=== PATIENT | male | born 1995 | race African-American/Black ===

== ENCOUNTER 2018-11-09 16:38 | Emergency (ER) | payer OTHER ==
[2018-11-09 16:48] VITALS: BP 147/90; PULSE 72; RESP 16; TEMP 97.4
[2018-11-09] MEDS ORDERED: GELATIN SPONGE,ABSORB (LARGE) 1 EACH SPONGE TOPICAL STA (17:01)
[2018-11-09] MEDS ORDERED: DIPH,PERTUS(ACELL)TETVAC-LF 0.5 ML VIAL IM ONE (17:02)
--- NOTE | 2018-11-09 17:11 | ED ---
Wound/Laceration HPI - General Chief Complaint: Wound/Laceration Stated Complaint: finger injury-[facility] Time Seen by Provider: 11/09/18 16:49 Source: patient, RN notes reviewed Mode of arrival: ambulatory Limitations: no limitations - History of Present Illness Initial Comments: 23-year-old male presents emergency Department with chief complaint of lacerat ion to his left hand fourth digit. Patient states that he was wearing gloves at work and states that apart caught his finger causing a laceration to the dorsal aspect of the finger. He states that there is just small area of skin missing. Patient's full range of motion no paresthesias. Patient's unsure when his last tetanus was. - Related Data Home Medications Medication Instructions Recorded Confirmed D-Methorphan/PE/Acetaminophen 1 cap PO DAILY PRN 11/09/18 11/09/18 [[facility] Dayquil Liquicaps] Allergies Allergy/AdvReac Type Severity Reaction Status Date / Time No Known Allergies Allergy Verified 11/09/18 17:02 Review of Systems ROS Statement: Those systems with pertinent positive or pertinent negative responses have been documented in the HPI. ROS Other: All systems not noted in ROS Statement are negative. Past Medical History Past Medical History: No Reported History History of Any Multi-Drug Resistant Organisms: None Reported Past Surgical History: No Surgical Hx Reported Past Psychological History: No Psychological Hx Reported Smoking Status: Never smoker Past Alcohol Use History: None Reported Past Drug Use History: None Reported General Exam Limitations: no limitations General appearance: alert, in no apparent distress Head exam: Present: atraumatic, normocephalic, normal inspection Respiratory exam: Present: normal lung sounds bilaterally. Absent: respiratory distress, wheezes, rales, rhonchi, stridor Cardiovascular Exam: Present: regular rate, normal rhythm, normal heart sounds. Absent: systolic murmur, diastolic murmur, rubs, gallop, clicks Extremities exam: Present: other (Left hand fourth digit there is a skin avulsion on the dorsal aspect, 0.5 cm, neurovascular intact full range of motion) Skin exam: Present: warm, dry, normal color, rash Course Vital Signs 11/09/18 16:45 Temperature 97.4 F L Pulse Rate 72 Respiratory 16 Rate Blood Pressure 147/90 O2 Sat by Pulse 100 Oximetry Medical Decision Making - Medical Decision Making 22-year-old male presented for skin avulsion. Patient had no formal applied, tetanus is updated x-ray is negative for acute fracture. Patient will be discharged wound care instructions given. Disposition Clinical Impression: Avulsion of skin of finger Disposition: HOME SELF-CARE Condition: Stable Instructions (If sedation given, give patient instructions): Skin Avulsion (ED) Additional Instructions: Please return to the Emergency Department if symptoms worsen or any other concerns. Is patient prescribed a controlled substance at d/c from ED?: No Referrals: None,Stated [Primary Care Provider] - 1-2 days Time of Disposition: 17:21
--- NOTE | 2018-11-09 17:21 | XR ---
PROCEDURE: XR finger LT - 3V DATE AND TIME: 11/09/2018 5:09 PM CLINICAL INDICATION: PH[facility]; Pain TECHNIQUE: Department protocol COMPARISON: None FINDINGS: There is no fracture or malalignment. The soft tissues are unremarkable. IMPRESSION: NO ACUTE PROCESS.
== END 2018-11-09 17:54 | disposition home or self-care (01) ==
LOC: EC 16:38
DX: S61.315A Laceration without foreign body of left ring finger with damage to nail, initial encounter (principal); Z23 Encounter for immunization; W23.0XXA Caught, crushed, jammed, or pinched between moving objects, initial encounter; Y92.69 Other specified industrial and construction area as the place of occurrence of the external cause; Y99.0 Civilian activity done for income or pay
CPT/HCPCS: 90471; 90715; 99283

== ENCOUNTER → 2020-04-24 | Outpatient (CLI) | payer OTHER | END | disposition home or self-care (01) | LOC: LABWHC1 15:20 | PROVIDERS: ATTEND Emergency Medicine | DX: Z20.828 Contact with and (suspected) exposure to other viral communicable diseases (principal) | CPT/HCPCS: U0003; C9803 ==